=== PATIENT | male | born 1960 | race Caucasian/White ===

== ENCOUNTER → 2023-05-07 | Outpatient (CLI) | payer OTHER, SELFPAY ==
--- NOTE | 2023-05-07 08:04 | CT_ITS ---
STUDY: LOW DOSE CT LUNG CANCER SCREENING REASON FOR EXAM: Male, 62 years old. One pack per day smoker x25 years RADIATION DOSAGE (If Supplied By Facility): CTDIvol = ( 4.02 ) mGy, DLP = ( 133.41 ) mGycm TECHNIQUE: No contrast was administered. Low dose technique was utilized (average mAS-38 and kVp 120). 1.25 mm axial source images with a slice interval of 1.25-mm were reconstructed in lung windows. 2.5 mm axial source images with a slice interval of 2.5-mm were reconstructed in lung windows. 5.0 mm axial source images with a slice interval of 5.0-mm were reconstructed in soft tissue windows. COMPARISON: No recent studies, plain film from 2016 FINDINGS: Lung windows show the lungs to be normally expanded. Evidence of chronic bronchitis with peribronchial thickening throughout both lung ontiveros. No organized infiltrate or effusion. Chronic interstitial changes noted in both lung bases. No suspicious noncalcified mass or nodule Limited soft tissue windows show no suspicious thyroid abnormality. There are scattered subcentimeter in short axis dimension, likely reactive axillary, mediastinal, and perihilar adenopathy. Calcified coronary vessels. No thoracic aortic aneurysm Limited cuts to the upper abdomen do not show a suspicious abnormality. Bony structures show degenerative change CT/Low Dose CT Lung Screening IMPRESSION: Lung-RADS category 2 - Continue annual screening with LDCT in 12 months. IMPORTANT NOTES FOR USE: ACR Lung-RADS Version 1.1 Assessment Categories Release Date: 2018 Category: Coded 0-4 bases on nodule(s) with highest degree of suspicion. Negative screen is defined as categories 1 and 2; a positive screen is defined as categories 3 and 4. Category 3 and 4A nodules that are unchanged on interval CT should be coded as category 2, and individuals returned to screening in 12 months. Category 4X: Category 3 or 4 nodules with additional imaging findings that increase the suspicion of lung cancer, such as spiculation, GGN that doubles in size in 1 year, enlarged lymph notes, etc. Category Modifiers: S (significant finding unrelated to lung cancer) Electronically Signed: Scotty Dhaliwal MD at 11:52 EST ,
== END | disposition home or self-care (01) ==
LOC: CT 08:03
PROVIDERS: PCP Nurse Practitioner Family; Referring Provider Nurse Practitioner Acute Care; Visit Provider Nurse Practitioner Acute Care
DX: F17.210 Nicotine dependence, cigarettes, uncomplicated (principal)
CPT/HCPCS: 71271